=== PATIENT | female | born 1980 | race Two or more races ===

== ENCOUNTER 2024-07-12 21:31 | Emergency (ER) | payer OTHER ==
[~2024-07-12] VITALS: Ht 157.5 cm; Wt 61.2 kg
[2024-07-12 22:38] VITALS: BP 135/84; TEMP 98.6; O2SAT 98
== END 2024-07-12 23:59 | disposition home or self-care (01) ==
LOC: ER 21:34
DX: N63.0 Unspecified lump in unspecified breast (principal)